=== PATIENT | female | born 1980 | race Caucasian/White ===

== ENCOUNTER 2016-10-15 16:50 | Emergency (ER) | payer SELFPAY ==
[~2016-10-15] VITALS: Ht 170.2 cm; Wt 57.7 kg
[~2016-10-15 16:50] MED LIST: NAPROXEN500 MG PO; NORCO 5/3251 TABLET PO; TRAMADOL HCL50 MG PO; VALIUM5 MG PO
[2016-10-15 16:52] VITALS: BP 120/80
[2016-10-15] MEDS ORDERED: MOTRIN600 MG PO (17:37)
== END 2016-10-15 18:27 | disposition home or self-care (01) ==
LOC: EME 16:50
DX: S60.012A Contusion of left thumb without damage to nail, initial encounter (principal); W22.8XXA Striking against or struck by other objects, initial encounter; Y99.0 Civilian activity done for income or pay; Y92.511 Restaurant or cafe as the place of occurrence of the external cause
CPT/HCPCS: 73130; 99281; 99283

== ENCOUNTER 2017-08-26 17:22 | Emergency (ER) | payer SELFPAY ==
[~2017-08-26] VITALS: Ht 172.7 cm; Wt 59.5 kg
[~2017-08-26 17:22] MED LIST changes: +MOTRIN600 MG PO
[2017-08-26] MEDS ORDERED: NAPROXEN500 MG PO (20:41)
[2017-08-26 21:16] VITALS: BP 120/77
== END 2017-08-26 21:30 | disposition home or self-care (01) ==
LOC: EME 17:22
DX: S43.401A Unspecified sprain of right shoulder joint, initial encounter (principal); X50.3XXA Overexertion from repetitive movements, initial encounter; F17.200 Nicotine dependence, unspecified, uncomplicated
CPT/HCPCS: 73030; 99281; 99284